=== PATIENT | female | born 1985 | race Caucasian/White ===

== ENCOUNTER 2018-07-18 09:54 | Day surgery (SDC) | payer BC ==
[~2018-07-18 09:54] MED LIST: Lactated Ringers 1,000 ML IV SCH; Lidocaine 2% 5 ML SDV ONE; Midazolam 1 MG/ML 2 ML SDV ONE; Propofol 200 MG/20 ML SDV ONE; Sodium Chloride 0.9% 10 ML Syringe FLUSH PRN; Sodium Chloride 0.9% 2.5 ML Syringe FLUSH PRN
--- NOTE | 2018-07-18 10:52 | PCM.PREANE ---
Preanesthetic Assessment - Anesthesia/Transfusion/Family Hx Anesthesia History: Prior Anesthesia Without Reaction Family History of Anesthesia Reaction: No Transfusion History: Prior Transfusion Without Reaction Intubation History: Unknown - Review of Systems General: No Symptoms Pulmonary: No Symptoms Cardiovascular: No Symptoms Gastrointestinal: Difficulty Swallowing Neurological: No Symptoms Other: Reports: None - Physical Assessment O2 Sat by Pulse Oximetry: 98 Respiratory Rate: 16 Vital Signs: Last Vital Signs Temp 36.3 C 07/18/18 10:20 Pulse 71 07/18/18 10:20 Resp 16 07/18/18 10:20 BP 107/60 07/18/18 10:20 Pulse Ox 98 07/18/18 10:20 Height: 1.63 m Weight: 59.421 kg ASA Class: 2 Mental Status: Alert & Oriented x3 Airway Class: Mallampati = 1 Dentition: Reports: Normal Dentition Thyro-Mental Finger Breadths: 3 Mouth Opening Finger Breadths: 3 ROM/Head Extension: Full Lungs: Clear to Auscultation, Normal Respiratory Effort Cardiovascular: Regular Rate, Regular Rhythm - Allergies Allergies/Adverse Reactions: Allergies Allergy/AdvReac Type Severity Reaction Status Date / Time No Known Allergies Allergy Verified 06/17/18 11:16 - Blood Blood Available: No - Anesthesia Plan Pre-Op Medication Ordered: None - Acknowledgements Anesthesia Type Planned: MAC Pt an Appropriate Candidate for the Planned Anesthesia: Yes Alternatives and Risks of Anesthesia Discussed w Pt/Guardian: Yes Pt/Guardian Understands and Agrees with Anesthesia Plan: Yes PreAnesthesia Questionnaire - Past Health History Medical/Surgical History: Denies Medical/Surgical History HEENT History: Reports: Other (See Below) Other HEENT History: wears glasses/contacts Gastrointestinal History: Reports: GERD Other Gastrointestinal History: difficulty swallowing - progressive dysphagia last 3 years Genitourinary History: Reports: None CONFIGURATOR History: Reports: Musculoskeletal History: Reports: Fracture, Other (See Below) Other Musculoskeletal History: foot surgery on both,right wrist fracture Neurological History: Reports: None Psychiatric History: Reports: None Endocrine/Metabolic History: Reports: None Hematologic History: Reports: Blood Transfusion(s) Immunologic History: Reports: None Oncologic (Cancer) History: Reports: None Dermatologic History: Reports: Eczema - Past Surgical History Head Surgeries/Procedures: Reports: None HEENT Surgical History: Reports: Oral Surgery Musculoskeletal Surgical History: Reports: Other (See Below) Other Musculoskeletal Surgeries/Procedures:: bilat. foot surgery - extra bone excision - SUBSTANCE USE Smoking Status *Q: Never Smoker Recreational Drug Use History: No - HOME MEDS Home Medications: Home Meds Desogestrel-Ethinyl Estradiol [[place] 28 Day Tablet] 1 tab PO DAILY 06/17/18 [History] Multivitamin [Multivitamins] 1 tab PO DAILY 06/17/18 [History] Omeprazole 20 mg PO DAILY 06/17/18 [History] - CURRENT (IN HOUSE) MEDS Current Meds: Current Medications Lactated Ringer's (Ringers, Lactated) 1,000 mls @ 125 mls/hr IV ASDIRECTED MAGGIE Last Admin: 07/18/18 10:26 Dose: 125 mls/hr Sodium Chloride (Saline Flush) 10 ml FLUSH ASDIRECTED PRN PRN Reason: Keep Vein Open Sodium Chloride (Saline Flush) 2.5 ml FLUSH ASDIRECTED PRN PRN Reason: Keep Vein Open Discontinued Medications Lidocaine (Xylocaine-Mpf 2%) Confirm Administered Dose 5 ml .ROUTE .STK-MED ONE Stop: 07/18/18 07:58 Midazolam HCl (Versed 1 Mg/Ml) Confirm Administered Dose 2 mg .ROUTE .STK-MED ONE Stop: 07/18/18 07:58 Propofol (Diprivan 20 Ml) Confirm Administered Dose 400 mg .ROUTE .STK-MED ONE Stop: 07/18/18 07:58
[2018-07-18] MEDS ORDERED: fentaNYL 100 MCG/2 ML SDV ONE (11:49)
--- NOTE | 2018-07-18 11:54 | PCM.OPNOTE ---
- General Post-Op/Procedure Note Date of Surgery/Procedure: 07/18/18 Operative Procedure(s): EGD Findings: Small hiatal hernia Pre Op Diagnosis: Dysphagia Post-Op Diagnosis: Hiatal hernia Anesthesia Technique: TRISTAN Primary Surgeon: Claudia Briscoe Marketing Database Coordinator: Ella Dao Condition: Good
[2018-07-18 12:39] VITALS: BP 100/52
--- NOTE | 2018-07-18 18:40 | OR ---
SURGEON: CLAUDIA BRISCOE MD DATE OF PROCEDURE: 07/18/2018 PREOPERATIVE DIAGNOSES: 1. Dysphagia. 2. Hiatal hernia. POSTOPERATIVE DIAGNOSES: 1. Dysphagia. 2. Hiatal hernia. PROCEDURE PERFORMED: Diagnostic esophagogastroduodenoscopy. ENDOSCOPIST: Claudia Briscoe MD. ANESTHESIA: MAC. INSTRUMENT USED: Olympus endoscope. EXTENT OF EXAM: Second portion of duodenum. PREPARATION: Good. LIMITATIONS: None. INDICATION FOR EXAMINATION: The patient is a 32-year-old female who presents with progressive dysphagia. A preoperative esophagram showed a tiny hiatal hernia with a small amount of narrowing at the distal esophagus. We discussed the need for a diagnostic EGD. I explained the procedure, expected perioperative course, and risks including bleeding, infection, or damage to surrounding structures. The patient verbalized understanding and wishes to proceed. PROCEDURE IN DETAIL: The patient was brought into the endoscopy suite and placed in a beach chair position. A time-out was completed verifying the patient's name, age, date of , allergies, and procedure to be performed. A bite block was placed in the patient's mouth. Monitored anesthesia care was induced and continuous oxygen was provided via nasal cannula throughout the procedure. After adequate sedation was achieved, a well lubricated endoscope was placed in the patient's mouth and advanced under direct visualization to the second portion of duodenum. This appeared normal and a photograph was taken. The scope was then straightened out and fully withdrawn while examining the color, texture, anatomy, and integrity of the mucosa of the upper GI tract. The duodenum was free of pathology. The scope was brought into the stomach and a photograph was taken of the GE junction as well as the pylorus. The patient was noted to have a very tiny hiatal hernia. The gastric mucosa was free of gross inflammation or ulceration. Biopsies were taken of the antrum, body, and fundus, and sent for histologic review and H. pylori testing. The scope was brought into the distal esophagus and a photograph was taken of the Z-line. Overall, this appeared normal. The patient had a very tiny hiatal hernia. I saw no evidence of gross inflammation or ulceration. There was no evidence of any esophageal ring or narrowing. A biopsy was taken approximately 2 cm above the Z-line and sent to Pathology, labeled as esophageal biopsy. The esophageal mucosa itself appeared healthy with no signs of any pathology. The scope was removed and the procedure terminated. The patient tolerated procedure well and was taken to PACU in stable condition. ENDOSCOPIC DIAGNOSES: 1. Dysphagia. 2. Hiatal hernia. RECOMMENDATIONS: Follow up in clinic in 2 weeks. JOHANNY MARSHALL /[id number]
== END 2018-07-18 12:40 | disposition home or self-care (01) ==
LOC: MW.SDS 09:54
PROVIDERS: ATTEND Surgery
DX: K20.9 Esophagitis, unspecified (principal); K44.9 Diaphragmatic hernia without obstruction or gangrene
CPT/HCPCS: 43239; 81025; J2001; J2250; J2704; J3010; J7120

== ENCOUNTER 2022-08-06 09:23 | Day surgery (SDC) | payer BC ==
[2022-08-06] MEDS ORDERED: LORazepam 2 MG/ML SDV IVPUSH ONE (10:02)
[2022-08-06] MEDS ORDERED: Glucagon,Human Recombinant 1 MG Vial IM ONE (10:02)
[2022-08-06 10:27] LABS: CARBON DIOXIDE,CO2 27.1 mmol/L (21.0-32.0); POTASSIUM,K 3.8 mmol/L (3.5-5.1)
[2022-08-06] MEDS ORDERED: Sodium Chloride 0.9% 1,000 ML IV ONE (11:04)
[2022-08-06] MEDS ORDERED: Sodium Chloride 0.9% 2.5 ML Syringe FLUSH PRN (11:04)
[2022-08-06] MEDS ORDERED: Sodium Chloride 0.9% 10 ML Syringe FLUSH PRN (11:04)
[2022-08-06] MEDS ORDERED: Rocuronium Bromide 50 MG/5 ML Syringe ONE (11:10)
[2022-08-06] MEDS ORDERED: Ondansetron 4 MG/2 ML SDV ONE (11:10)
[2022-08-06] MEDS ORDERED: Ketorolac 30 MG/ML SDV ONE (11:10)
[2022-08-06] MEDS ORDERED: Propofol 200 MG/20 ML SDV ONE (11:10)
[2022-08-06] MEDS ORDERED: fentaNYL 100 MCG/2 ML SDV ONE (11:10)
[2022-08-06] MEDS ORDERED: Lidocaine 2% 5 ML SDV ONE (11:10)
[2022-08-06] MEDS ORDERED: Sugammadex Sodium 200 MG/2 ML VIAL ONE (11:10)
[2022-08-06] MEDS ORDERED: Albuterol 0.083% 2.5 MG/3 ML Neb Soln NEB PRN (11:49)
[2022-08-06] MEDS ORDERED: Metoclopramide 10 MG/2 ML SDV IVPUSH PRN (11:49)
[2022-08-06] MEDS ORDERED: droPERidol 5 MG/2 ML SDV IVPUSH PRN (11:49)
[2022-08-06] MEDS ORDERED: fentaNYL 50 MCG/ML SDV IVPUSH PRN (11:49)
[2022-08-06] MEDS ORDERED: Morphine 2 MG/ML SYRINGE IVPUSH PRN (11:49)
[2022-08-06] MEDS ORDERED: Naloxone 0.4 MG/ML SDV IVPUSH PRN (11:49)
[2022-08-06] MEDS ORDERED: HYDROmorphone 1 MG/ML Syringe IVPUSH PRN (11:49)
[2022-08-06] MEDS ORDERED: Ondansetron 4 MG/2 ML SDV IVPUSH PRN (11:49)
[2022-08-06 13:39] VITALS: BP 104/61; PULSE 70
== END 2022-08-06 13:30 | disposition home or self-care (01) ==
LOC: MW.ED 09:23 → UNDOADMOB 11:05 → MW.MS 11:05 → MW.SDS 11:52 → MW.MS 11:52 → UNDOADMOB 11:52 → UNDODISOB 13:30 → MW.SDS 13:30
PROVIDERS: ATTEND Surgery
DX: K22.2 Esophageal obstruction (principal); K21.9 Gastro-esophageal reflux disease without esophagitis; J45.909 Unspecified asthma, uncomplicated; E78.00 Pure hypercholesterolemia, unspecified; Z87.738 Personal history of other specified (corrected) congenital malformations of digestive system; K44.9 Diaphragmatic hernia without obstruction or gangrene
CPT/HCPCS: 36415; 43247; 71045; 80053; 84703; 85025; 96372; 96374; 99284; J1610; J1885; J2060; J2704; J3010; J3490; J2405